=== PATIENT | male | born 1960 ===

== ENCOUNTER 2017-11-05 20:24 | Observation (INO) | payer BC ==
[2017-11-05 20:28] VITALS: BMI 31.0
--- NOTE | 2017-11-05 21:08 | ED PDOC ---
Arrival/HPI - General Chief Complaint: Chest Pain Time Seen by Provider: 11/05/17 20:27 Historian: Patient - History of Present Illness Narrative History of Present Illness (Text): 11/05/17 21:03 Erick Hackett is a 57 year old male , whose past medical history includes hypertension, who presents to the emergency department complaining of intermittent chest discomfort this evening while resting at home. Patient describes chest discomfort as tightness and non-radiating. Patient reports a history of past tobacco abuse and family history of CAD. Patient notes he is allergic to aspirin. Patient denies any shortness of breath, fever, chills, cough, leg pain, or any other complaints. Symptom Onset: Gradual Symptom Course: Unchanged Activities at Onset: Light Context: Home Past Medical History - Provider Review Nursing Documentation Reviewed: Yes - Infectious Disease Hx of Infectious Diseases: None - Tetanus Immunization Tetanus Immunization: Unknown - Cardiac Hx Hypertension: No (Pt states he does not have hx of HTN) - Pulmonary Hx Bronchitis: Yes - Neurological HX Cerebrovascular Accident: Yes Hx Transient Ischemic Attacks (TIA): Yes - HEENT Hx HEENT Disorder: No - Renal Hx Renal Disorder: No - Endocrine/Metabolic Hx Endocrine Disorders: No - Hematological/Oncological Hx Blood Disorders: No - Integumentary Hx Dermatological Disorder: No - Musculoskeletal/Rheumatological Hx Musculoskeletal Disorders: No Hx Falls: No - Gastrointestinal Hx Gastrointestinal Ulcer: Yes - Genitourinary/Gynecological Hx Genitourinary Disorders: No - Psychiatric Hx Depression: No Hx Emotional Abuse: No Hx Physical Abuse: No Hx Substance Use: No - Past Surgical History Past Surgical History: No Previous - Suicidal Assessment Feels Threatened In Home Enviroment: No Family/Social History - Physician Review Nursing Documentation Reviewed: Yes Family/Social History: Unknown Family HX Smoking Status: Former Smoker Hx Alcohol Use: No Hx Substance Use: No Hx Substance Use Treatment: No Allergies/Home Meds Allergies/Adverse Reactions: Allergies aspirin Allergy (Verified 11/05/17 20:29) VOMITING Home Medications: Home Meds Medication Instructions Recorded Confirmed Atorvastatin Calcium [Lipitor] 10 mg PO DAILY 11/04/14 11/06/17 Review of Systems - Physician Review All systems were reviewed & negative as marked: Yes - Review of Systems Constitutional: Normal. absent: Fevers Eyes: Normal ENT: Normal Respiratory: Normal. absent: SOB, Cough Cardiovascular: Chest Pain Gastrointestinal: Normal. absent: Abdominal Pain, Diarrhea, Nausea, Vomiting Genitourinary Male: Normal. absent: Dysuria, Frequency, Hematuria, Urinary Output Changes Musculoskeletal: Normal. absent: Back Pain, Neck Pain Skin: Normal. absent: Rash Neurological: Normal. absent: Headache, Dizziness Endocrine: Normal Hemo/Lymphatic: Normal Psychiatric: Normal Physical Exam Vital Signs Reviewed: Yes Vital Signs Temp Pulse Resp BP Pulse Ox 11/05/17 23:13 63 18 139/91 H 95 11/05/17 20:29 98.2 F 92 H 19 143/55 L 99 Temperature: Afebrile Blood Pressure: Normal Pulse: Regular Respiratory Rate: Normal Appearance: Positive for: Well-Appearing, Non-Toxic, Comfortable Pain Distress: None Mental Status: Positive for: Alert and Oriented X 3 - Systems Exam Head: Present: Atraumatic, Normocephalic Pupils: Present: PERRL Extroacular Muscles: Present: EOMI Conjunctiva: Present: Normal Mouth: Present: Moist Mucous Membranes Neck: Present: Normal Range of Motion. No: Meningeal Signs, MIDLINE TENDERNESS , Paraspinal Tenderness Respiratory/Chest: Present: Clear to Auscultation, Good Air Exchange. No: Respiratory Distress, Accessory Muscle Use Cardiovascular: Present: Regular Rate and Rhythm, Normal S1, S2. No: Murmurs Abdomen: Present: Normal Bowel Sounds. No: Tenderness, Distention, Peritoneal Signs Back: Present: Normal Inspection Upper Extremity: Present: Normal Inspection. No: Cyanosis, Edema Lower Extremity: Present: Normal Inspection. No: Edema Neurological: Present: GCS=15, CN II-XII Intact, Speech Normal Skin: Present: Warm, Dry, Normal Color. No: Rashes Psychiatric: Present: Alert, Oriented x 3, Normal Insight, Normal Concentration Medical Decision Making ED Course and Treatment: 11/05/17 21:03 Impression: 57 year old male complaining of intermittent chest tightness tonight. Plan: -- EKG -- CXR -- Labs, cardiac enzymes -- Reassess and disposition Progress Notes: Reviewed EKG, NSR at [address]-segment elevations or depressions, no T-wave inversions, normal intervals. 11/05/17 22:50 Chest X-ray reviewed, shows no acute processes. 11/06/17 00:[address] Tineo, requests pt go to hospitalist service. 11/06/17 00:05 Case discussed with chief medical technologist safety consultant, who is aware and agrees with plan. Case discussed with Dr. Bhandari, who is aware and agrees with plan. Accepts pt in to hospitalist service. Pt will go to Telemetry observation for chest pain. - Lab Interpretations Lab Results: 11/05/17 20:55 11/05/17 20:55 Lab Results 11/05/17 20:55: WBC 8.3, RBC 4.92, Hgb 14.5, Hct 42.5, MCV 86.4, MCH 29.5, MCHC 34.1, RDW 12.7, Plt Count 295, MPV 9.0 11/05/17 20:55: Sodium 142, Potassium 3.9, Chloride 105, Carbon Dioxide 27, Anion Gap 15, BUN 12, Creatinine 0.9, Est GFR ( Amer) > 60, Est GFR (Non- Af Amer) > 60, Random Glucose 157 H, Calcium 9.4, Total Bilirubin 0.3, AST 30, ALT 36, Alkaline Phosphatase 84, Lactate Dehydrogenase 409, Total Creatine Kinase 96, Troponin I < 0.01, Total Protein 7.4, Albumin 4.0, Globulin 3.4, Albumin/Globulin Ratio 1.2 11/05/17 20:55: PT 11.9, INR 1.04, APTT 31.6 I have reviewed the lab results: Yes - RAD Interpretation Radiology Orders: 11/05/17 20:46 CHEST PORTABLE [RAD] Stat Subsurface Augmentee Elint Operator: ED Physician - EKG Interpretation Interpreted by ED Physician: Yes Type: 12 lead EKG - Medication Orders Current Medication Orders: Discontinued Medications Acetaminophen (Tylenol 325mg Tab) 650 mg PO Q6H PRN PRN Reason: Pain, moderate (4-7) Atorvastatin Calcium (Lipitor) 10 mg PO DIN [facility] Last Admin: 11/06/17 17:15 Dose: 10 mg Enoxaparin Sodium (Lovenox) 40 mg SC DAILY [facility] PRN Reason: Protocol Last Admin: 11/06/17 14:15 Dose: 40 mg Subcutaneous Administrations Document 11/06/17 14:15 DALI (Rec: 11/06/17 14:15 KL [id number]) Injection Site MAR Injection Site Left Abdomen Charges for Administration # of Subcutaneous Administrations 1 Metoprolol Succinate (Toprol Xl) 12.5 mg PO BRK [facility] Last Admin: 11/06/17 08:36 Dose: Not Given Non-Admin Reason: Patient Refused Morphine Sulfate (Morphine) 2 mg IVP Q4H PRN PRN Reason: Pain, severe (8-10) - Scribe Statement The provider has reviewed the documentation as recorded by the Scribe Noreen Romero All medical record entries made by the Scribe were at my direction and personally dictated by me. I have reviewed the chart and agree that the record accurately reflects my personal performance of the history, physical exam, medical decision making, and the department course for this patient. I have also personally directed, reviewed, and agree with the discharge instructions and disposition. Disposition/Present on Arrival - Present on Arrival Any Indicators Present on Arrival: No History of DVT/PE: No History of Uncontrolled Diabetes: No Urinary Catheter: No History of Decub. Ulcer: No History Surgical Site Infection Following: None - Disposition Have Diagnosis and Disposition been Completed?: Yes Diagnosis: Chest pain Disposition: HOSPITALIZED Disposition Time: 23:00 Condition: GOOD
[2017-11-05 21:18] LABS: ALB/GLOB RATIO 1.2 (1.1-1.8); ALT/SGPT 36 U/L (7-56); AST/SGOT 30 U/L (17-59); BLOOD UREA NITROGEN 12 mg/dL (7-21); CALCIUM 9.4 mg/dL (8.4-10.5); GFR AFRICAN-AMERICAN > 60; GFR NON-AFRICAN AMERICAN > 60; HEMOGLOBIN 14.5 g/dL (14.0-18.0); MEAN CELL VOLUME 86.4 fl (80.0-105.0); MEAN CORPUSCULAR HEMOGLOBIN 29.5 pg (25.0-35.0); MEAN CORPUSCULAR HGB CONC 34.1 g/dl (31.0-37.0); RBC 4.92 10^6/uL (3.5-6.1); RED CELL DISTRIBUTION WIDTH 12.7 % (11.5-14.5); WHITE BLOOD COUNT 8.3 10^3/ul (4.5-11.0)
[2017-11-05 21:27] LABS: INR 1.04 (0.93-1.08); PARTIAL THROMBOPLASTIN TIME 31.6 Seconds (25.1-36.5); PROTHROMBIN TIME 11.9 SECONDS (9.4-12.5)
[2017-11-05 21:30] LABS: TROPONIN I < 0.01 ng/mL
[2017-11-06] MEDS ORDERED: Morphine 2 mg/ml ISec IVP PRN (01:17)
[2017-11-06 01:48] VITALS: RESP 20
--- NOTE | 2017-11-06 01:49 | CP.PCM.HP ---
<Markus Tenorio - Last Filed: 11/06/17 01:56> History of Present Illness - History of Present Illness History of Present Illness: CC: Chest Pain HPI: Patient is a 57 year old male with past medical history of HLD and history of TIA x3 without residual effects who presents to [facility] ED via private vehicle complaining of chest pain. Patient reports he began having chest discomfort 2 hours prior to arrival while sitting at home watching television. Patient describes the pain as muscle cramping at his left pectoral muscle that radiates to his left shoulder. Pain was initially reported a 8/10, lasting a few minutes , and is not reproducible. Patient reports associated shortness of breath with episode, denies nausea, vomiting, diaphoresis. Patient denies taking any medications or any alleviating factors to his pain. Reports prior episodes of chest discomfort similar to his presentation. Patient has been seen and evaluated by a coffee shop manager and reports having up to 3 stress tests in the past that were all negative. Patient denies headache, dizziness, change in vision, abdominal pain, diarrhea, nausea, vomiting, pleuritic pain, weakness. 12 point ROS otherwise mentioned in HPI is benign. 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 Nguyen Cardio: Last seen by Dr. Conroy/Dr. Rivera Present on Admission - Present on Admission Any Indicators Present on Admission: No Review of Systems - Review of Systems All systems: reviewed and no additional remarkable complaints except (otherwise mentioned in HPI) Past Patient History - Infectious Disease Hx of Infectious Diseases: None - Tetanus Immunizations Tetanus Immunization: Unknown - Past Social History Smoking Status: Former Smoker Alcohol: Social Drugs: Denies - CARDIAC Hx Cardiac Disorders: Yes Hx Angina: Yes Hx Hypercholesterolemia: Yes - PULMONARY Hx Respiratory Disorders: No - NEUROLOGICAL Hx Neurological Disorder: Yes Hx Transient Ischemic Attacks (TIA): Yes - HEENT Hx HEENT Problems: No - RENAL Hx Chronic Kidney Disease: No - ENDOCRINE/METABOLIC Hx Endocrine Disorders: No - HEMATOLOGICAL/ONCOLOGICAL Hx Blood Disorders: No - INTEGUMENTARY Hx Dermatological Problems: No - MUSCULOSKELETAL/RHEUMATOLOGICAL Hx Musculoskeletal Disorders: No - GASTROINTESTINAL Hx Gastrointestinal Disorders: No - GENITOURINARY/GYNECOLOGICAL Hx Genitourinary Disorders: No - PSYCHIATRIC Hx Psychophysiologic Disorder: No - SURGICAL HISTORY Hx Surgeries: No Meds Allergies/Adverse Reactions: Allergies Allergy/AdvReac Type Severity Reaction Status Date / Time aspirin Allergy VOMITING Verified 11/05/17 20:29 Physical Exam - Constitutional Appears: Well, Non-toxic, No Acute Distress - Head Exam Head Exam: ATRAUMATIC, NORMAL INSPECTION, NORMOCEPHALIC - Eye Exam Eye Exam: EOMI, PERRL - ENT Exam ENT Exam: Mucous Membranes Moist - Neck Exam Neck exam: Positive for: Full Rom. Negative for: Lymphadenopathy - Respiratory Exam Respiratory Exam: Clear to Auscultation Bilateral, NORMAL BREATHING PATTERN. absent: Rales, Rhonchi, Wheezes - Cardiovascular Exam Cardiovascular Exam: REGULAR RHYTHM, +S1, +S2 - GI/Abdominal Exam GI & Abdominal Exam: Normal Bowel Sounds, Soft. absent: Firm, Guarding, Tenderness - Back Exam Back exam: NORMAL INSPECTION. absent: paraspinal tenderness - Neurological Exam Neurological exam: Alert, Normal Gait, Oriented x3 - Psychiatric Exam Psychiatric exam: Normal Affect, Normal Mood - Skin Skin Exam: Dry, Intact Results - Vital Signs Recent Vital Signs: Last Vital Signs Temp 98.2 F 11/05/17 20:29 Pulse 61 11/06/17 00:13 Resp 18 11/06/17 00:13 BP 103/60 11/06/17 00:13 Pulse Ox 95 11/06/17 00:13 - Labs Result Diagrams: 11/05/17 20:55 11/05/17 20:55 Assessment & Plan - Assessment and Plan (Free Text) Assessment: Patient is a 57 year old male with past medical history of HLD and history of TIA x3 without residual effects who presents to [facility] ED via private vehicle complaining of chest pain. Patient evaluated in ED and found to have EKG with NSR, no ST segment elevations/depressions, initial troponin is negative. Patient admitted for observation. Plan: 1. Chest pain r/o ACS - EKG - NSR, No ST segment elevation/depression (interpreted by me) - Initial Troponin is negative, trend troponin x2 Q6H - Patient allergic to Aspirin, holding - Metoprolol 12.5mg - IV morphine 2mg Q4H prn pain - O2 NC prn - Cardiology consult, appreciate recs 2. HLD hx - Continue home meds DVT/GI ppx - SCD - Pepcid Case and Plan discussed with attending - Date & Time Date: 11/06/17 Time: 01:51 <Paula Bhandari - Last Filed: 11/06/17 07:48> Results - Vital Signs Recent Vital Signs: Last Vital Signs Temp 97.8 F 11/06/17 06:00 Pulse 84 11/06/17 06:00 Resp 20 11/06/17 06:00 BP 121/77 11/06/17 06:00 Pulse Ox 100 11/06/17 06:00 - Labs Result Diagrams: 11/05/17 20:55 11/05/17 20:55 Labs: Laboratory Results - last 24 hr 11/06/17 02:25 Troponin I < 0.01 Attending/Attestation - Attestation I have personally seen and examined this patient.: Yes I have fully participated in the care of the patient.: Yes I have reviewed all pertinent clinical information: Yes Notes (Text): 11/06/17 07:48 agree with documentation and orders placed.
[2017-11-06] MEDS ORDERED: Metoprolol Succinate 25 mg XL Tab PO SCH (08:00)
--- NOTE | 2017-11-06 08:48 | RAD ---
HISTORY: Chest pain COMPARISON: 11/03/2014 FINDINGS: LUNGS: No active pulmonary disease. PLEURA: No significant pleural effusion identified, no pneumothorax apparent. CARDIOVASCULAR: No radiographic findings to suggest acute or significant cardiovascular disease. OSSEOUS STRUCTURES: No significant abnormalities. VISUALIZED UPPER ABDOMEN: Normal. OTHER FINDINGS: None. IMPRESSION: No active disease. No significant interval change compared to the prior examination(s).
[2017-11-06 09:17] LABS: BASO # 0.03 K/mm3 (0.0-2.0); BASO % 0.4 % (0.0-3.0); EOS # 0.2 (0.0-0.7); EOS % 2.7 % (1.5-5.0); GRAN # 4.53 (1.4-6.5); GRAN % 57.6 % (50.0-68.0); HEMOGLOBIN 15.6 g/dL (14.0-18.0); LYMPH # 2.5 (1.2-3.4); LYMPH % 31.2 % (22.0-35.0); MEAN CELL VOLUME 86.1 fl (80.0-105.0); MEAN CORPUSCULAR HEMOGLOBIN 29.7 pg (25.0-35.0); MEAN CORPUSCULAR HGB CONC 34.5 g/dl (31.0-37.0); MEAN PLATELET VOLUME 9.3 fl (7.0-11.0); MONO # 0.6 (0.1-0.6); MONO % 8.1 % (1.0-6.0); RBC 5.25 10^6/uL (3.5-6.1); RED CELL DISTRIBUTION WIDTH 12.8 % (11.5-14.5); WHITE BLOOD COUNT 7.9 10^3/ul (4.5-11.0)
[2017-11-06 09:27] LABS: ALB/GLOB RATIO 1.1 (1.1-1.8); ALBUMIN 3.9 g/dL (3.0-4.8); ALT/SGPT 35 U/L (7-56); AST/SGOT 24 U/L (17-59); BLOOD UREA NITROGEN 14 mg/dL (7-21); CALCIUM 9.4 mg/dL (8.4-10.5); GFR AFRICAN-AMERICAN > 60; GFR NON-AFRICAN AMERICAN > 60
[2017-11-06 09:52] LABS: HDL CHOLESTEROL 29 mg/dL (29-60)
[2017-11-06] MEDS ORDERED: Enoxaparin 40 mg Syringe SC SCH (10:00)
[2017-11-06 10:03] LABS: LDL CHOLESTEROL 169 mg/dL (0-129)
--- NOTE | 2017-11-06 13:05 | CP.PCM.DIS ---
<Luz Abdi - Last Filed: 11/06/17 16:16> Provider - Provider Date of Admission: 11/05/17 23:02 Attending physician: Parminder Wetzel MD Primary care physician: Federico Nguyen APN Consults: Dr Rivera Time Spent in preparation of Discharge (in minutes): 35 Hospital Course - Lab Results Lab Results: Most Recent Lab Values WBC 7.9 10^3/ul (4.5-11.0) 11/06/17 09:00 RBC 5.25 10^6/uL (3.5-6.1) 11/06/17 09:00 Hgb 15.6 g/dL (14.0-18.0) 11/06/17 09:00 Hct 45.2 % (42.0-52.0) 11/06/17 09:00 MCV 86.1 fl (80.0-105.0) 11/06/17 09:00 MCH 29.7 pg (25.0-35.0) 11/06/17 09:00 MCHC 34.5 g/dl (31.0-37.0) 11/06/17 09:00 RDW 12.8 % (11.5-14.5) 11/06/17 09:00 Plt Count 305 10^3/uL (120.0-450.0) 11/06/17 09:00 MPV 9.3 fl (7.0-11.0) 11/06/17 09:00 Gran % 57.6 % (50.0-68.0) 11/06/17 09:00 Lymph % (Auto) 31.2 % (22.0-35.0) 11/06/17 09:00 Bledsoe % (Auto) 8.1 % (1.0-6.0) H 11/06/17 09:00 Eos % (Auto) 2.7 % (1.5-5.0) 11/06/17 09:00 Baso % (Auto) 0.4 % (0.0-3.0) 11/06/17 09:00 Gran # 4.53 (1.4-6.5) 11/06/17 09:00 Lymph # (Auto) 2.5 (1.2-3.4) 11/06/17 09:00 Bledsoe # (Auto) 0.6 (0.1-0.6) 11/06/17 09:00 Eos # (Auto) 0.2 (0.0-0.7) 11/06/17 09:00 Baso # (Auto) 0.03 K/mm3 (0.0-2.0) 11/06/17 09:00 PT 11.9 SECONDS (9.4-12.5) 11/05/17 20:55 INR 1.04 (0.93-1.08) 11/05/17 20:55 APTT 31.6 Seconds (25.1-36.5) 11/05/17 20:55 Sodium 141 mmol/L (132-148) 11/06/17 09:00 Potassium 4.3 mmol/L (3.6-5.0) 11/06/17 09:00 Chloride 106 mmol/L (98-107) 11/06/17 09:00 Carbon Dioxide 26 mmol/L (21-33) 11/06/17 09:00 Anion Gap 14 (10-20) 11/06/17 09:00 BUN 14 mg/dL (7-21) 11/06/17 09:00 Creatinine 0.9 mg/dl (0.8-1.5) 11/06/17 09:00 Est GFR ( Amer) > 60 11/06/17 09:00 Est GFR (Non-Af Amer) > 60 11/06/17 09:00 Random Glucose 149 mg/dL (70-110) H 11/06/17 09:00 Hemoglobin A1c 7.3 % (4.2-6.5) H 11/06/17 09:00 Calcium 9.4 mg/dL (8.4-10.5) 11/06/17 09:00 Phosphorus 4.0 mg/dL (2.5-4.5) 11/06/17 09:00 Magnesium 2.3 mg/dL (1.7-2.2) H 11/06/17 09:00 Total Bilirubin 0.3 mg/dL (0.2-1.3) 11/06/17 09:00 AST 24 U/L (17-59) 11/06/17 09:00 ALT 35 U/L (7-56) 11/06/17 09:00 Alkaline Phosphatase 93 U/L (38-126) 11/06/17 09:00 Lactate Dehydrogenase 409 U/L (333-699) 11/05/17 20:55 Total Creatine Kinase 96 U/L (35-230) 11/05/17 20:55 Troponin I < 0.01 ng/mL 11/06/17 08:20 Total Protein 7.5 g/dL (5.8-8.3) 11/06/17 09:00 Albumin 3.9 g/dL (3.0-4.8) 11/06/17 09:00 Globulin 3.6 gm/dL 11/06/17 09:00 Albumin/Globulin Ratio 1.1 (1.1-1.8) 11/06/17 09:00 Triglycerides 172 mg/dL (35-160) H 11/06/17 09:00 Cholesterol 219 mg/dL (130-200) H 11/06/17 09:00 LDL Cholesterol Direct 169 mg/dL (0-129) H 11/06/17 09:00 HDL Cholesterol 29 mg/dL (29-60) 11/06/17 09:00 TSH 3rd Generation 2.98 mIU/mL (0.46-4.68) 11/06/17 09:00 - Hospital Course Hospital Course: HPI: Patient is a 57 year old male with past medical history of HLD and history of TIA x3 without residual effects who presents to [facility] via private vehicle complaining of chest pain. Patient reports he began having chest discomfort 2 hours prior to arrival while sitting at home watching television. Patient describes the pain as muscle cramping at his left pectoral muscle that radiates to his left shoulder. Pain was initially reported a 8/10, lasting a few minutes , and is not reproducible. Patient reports associated shortness of breath with episode, denies nausea, vomiting, diaphoresis. Patient denies taking any medications or any alleviating factors to his pain. Reports prior episodes of chest discomfort similar to his presentation. Patient has been seen and evaluated by a college archivist and reports having up to 3 stress tests in the past that were all negative. Patient denies headache, dizziness, change in vision, abdominal pain, diarrhea, nausea, vomiting, pleuritic pain, weakness. 12 point ROS otherwise mentioned in HPI is benign. Patient was given Lipitor 10mg PO DIN, Lovenox 40mg SC Daily. EKG showed no ST elevations. troponins negative x 3. Myocardial stress test normal and echo showed normal EF. Patient is to follow up with Cardiology in 1 week. and to take ASA 81mg (enteric coated) due to patient complaining of nausea and vomiting from previous intake of ASA. - Date & Time of H&P Date of H&P: 11/06/17 Time of H&P: 12:59 Discharge Exam - Head Exam Head Exam: ATRAUMATIC, NORMAL INSPECTION, NORMOCEPHALIC - Eye Exam Eye Exam: EOMI, Normal appearance Pupil Exam: NORMAL ACCOMODATION, PERRL - ENT Exam ENT Exam: Mucous Membranes Moist - Neck Exam Neck exam: Full Rom - Respiratory Exam Respiratory Exam: Clear to PA & Lateral, NORMAL BREATHING PATTERN. absent: Accessory Muscle Use - Cardiovascular Exam Cardiovascular Exam: REGULAR RHYTHM, +S1, +S2. absent: Bradycardia, Tachycardia - GI/Abdominal Exam GI & Abdominal Exam: Normal Bowel Sounds, Soft. absent: Diminished Bowel Sounds , Tenderness, Unremarkable - Extremities Exam Extremities exam: full ROM - Back Exam Back exam: FULL ROM - Neurological Exam Neurological exam: Alert, CN II-XII Intact, Oriented x3 - Psychiatric Exam Psychiatric exam: Normal Affect, Normal Mood - Skin Skin Exam: Dry, Intact, Normal Color, Warm Discharge Plan - Discharge Medications Prescriptions: Aspirin [Low Dose Aspirin EC] 81 mg PO DAILY #30 tablet.dr - Follow Up Plan Condition: GOOD Disposition: HOME/ ROUTINE Instructions: Cardiac Stress Test, Heart Healthy Diet, Chest Pain (DC) Additional Instructions: follow up with dr. Nguyen in one week and Plastic Mixer in One week for further management take ASA 81mg (enteric coated) daily Referrals: Federico Nguyen APN [Primary Care Provider] - <Parminder Wetzel - Last Filed: 11/08/17 12:07> Provider - Provider Date of Admission: 11/05/17 23:02 Attending physician: Parminder Wetzel MD Primary care physician: Federico Nguyen APN Hospital Course - Lab Results Lab Results: Most Recent Lab Values WBC 7.9 10^3/ul (4.5-11.0) 11/06/17 09:00 RBC 5.25 10^6/uL (3.5-6.1) 11/06/17 09:00 Hgb 15.6 g/dL (14.0-18.0) 11/06/17 09:00 Hct 45.2 % (42.0-52.0) 11/06/17 09:00 MCV 86.1 fl (80.0-105.0) 11/06/17 09:00 MCH 29.7 pg (25.0-35.0) 11/06/17 09:00 MCHC 34.5 g/dl (31.0-37.0) 11/06/17 09:00 RDW 12.8 % (11.5-14.5) 11/06/17 09:00 Plt Count 305 10^3/uL (120.0-450.0) 11/06/17 09:00 MPV 9.3 fl (7.0-11.0) 11/06/17 09:00 Gran % 57.6 % (50.0-68.0) 11/06/17 09:00 Lymph % (Auto) 31.2 % (22.0-35.0) 11/06/17 09:00 Bledsoe % (Auto) 8.1 % (1.0-6.0) H 11/06/17 09:00 Eos % (Auto) 2.7 % (1.5-5.0) 11/06/17 09:00 Baso % (Auto) 0.4 % (0.0-3.0) 11/06/17 09:00 Gran # 4.53 (1.4-6.5) 11/06/17 09:00 Lymph # (Auto) 2.5 (1.2-3.4) 11/06/17 09:00 Bledsoe # (Auto) 0.6 (0.1-0.6) 11/06/17 09:00 Eos # (Auto) 0.2 (0.0-0.7) 11/06/17 09:00 Baso # (Auto) 0.03 K/mm3 (0.0-2.0) 11/06/17 09:00 PT 11.9 SECONDS (9.4-12.5) 11/05/17 20:55 INR 1.04 (0.93-1.08) 11/05/17 20:55 APTT 31.6 Seconds (25.1-36.5) 11/05/17 20:55 Sodium 141 mmol/L (132-148) 11/06/17 09:00 Potassium 4.3 mmol/L (3.6-5.0) 11/06/17 09:00 Chloride 106 mmol/L (98-107) 11/06/17 09:00 Carbon Dioxide 26 mmol/L (21-33) 11/06/17 09:00 Anion Gap 14 (10-20) 11/06/17 09:00 BUN 14 mg/dL (7-21) 11/06/17 09:00 Creatinine 0.9 mg/dl (0.8-1.5) 11/06/17 09:00 Est GFR ( Amer) > 60 11/06/17 09:00 Est GFR (Non-Af Amer) > 60 11/06/17 09:00 Random Glucose 149 mg/dL (70-110) H 11/06/17 09:00 Hemoglobin A1c 7.3 % (4.2-6.5) H 11/06/17 09:00 Calcium 9.4 mg/dL (8.4-10.5) 11/06/17 09:00 Phosphorus 4.0 mg/dL (2.5-4.5) 11/06/17 09:00 Magnesium 2.3 mg/dL (1.7-2.2) H 11/06/17 09:00 Total Bilirubin 0.3 mg/dL (0.2-1.3) 11/06/17 09:00 AST 24 U/L (17-59) 11/06/17 09:00 ALT 35 U/L (7-56) 11/06/17 09:00 Alkaline Phosphatase 93 U/L (38-126) 11/06/17 09:00 Lactate Dehydrogenase 409 U/L (333-699) 11/05/17 20:55 Total Creatine Kinase 96 U/L (35-230) 11/05/17 20:55 Troponin I < 0.01 ng/mL 11/06/17 08:20 Total Protein 7.5 g/dL (5.8-8.3) 11/06/17 09:00 Albumin 3.9 g/dL (3.0-4.8) 11/06/17 09:00 Globulin 3.6 gm/dL 11/06/17 09:00 Albumin/Globulin Ratio 1.1 (1.1-1.8) 11/06/17 09:00 Triglycerides 172 mg/dL (35-160) H 11/06/17 09:00 Cholesterol 219 mg/dL (130-200) H 11/06/17 09:00 LDL Cholesterol Direct 169 mg/dL (0-129) H 11/06/17 09:00 HDL Cholesterol 29 mg/dL (29-60) 11/06/17 09:00 TSH 3rd Generation 2.98 mIU/mL (0.46-4.68) 11/06/17 09:00 Attending/Attestation - Attestation I have personally seen and examined this patient.: Yes I have fully participated in the care of the patient.: Yes I have reviewed all pertinent clinical information, including history, physical exam and plan: Yes Notes (Text): 11/08/17 12:07 Medical record note made by the resident after discussion with my direction and input after the patient was personally seen and examined by me. I have reviewed the chart and agree that the record accurately reflects by personal performance of the history, physical exam, data review, and medical decision-making, in the course for the patient. I have also personally directed the plan of care.
--- NOTE | 2017-11-06 17:02 | CARD ---
APPROVED REPORT EXAM: Two-dimensional and M-mode echocardiogram with Doppler and color Doppler. INDICATION LV Function:SystolicDiastolic Chest Pain 2D DIMENSIONS IVSd0.8 (0.7-1.1cm)LVDd4.2 (3.9-5.9cm) PWd0.9 (0.7-1.1cm)LVDs2.9 (2.5-4.0cm) FS (%) 31.0 %LVEF (%)59.0 (>50%) M-Mode DIMENSIONS Aortic Root3.10 (2.2-3.7cm)Aortic Cusp Exc.1.80 (1.5-2.0cm) Aortic Valve AoV Peak Qvmjfvup592.0cm/Marizol Peak GR.4mmHg Mitral Valve MV E Luyehwgd65.8cm/sMV A Rujbtsjq74.5cm/sE/A ratio0.9 TDI Lateral E' Peak V8.48cm/sMedial E' Peak V5.46cm/sE/Lateral E'6.5 E/Medial E'10.0 Pulmonary Valve PV Peak Qwhxbcid80.4cm/sPV Peak Grad.2mmHg Tricuspid Valve TR Peak Wwkxkcsx312ey/sRAP VAJEZUGC52phQjTZ Peak Gr.18mmHg [id number] LEFT VENTRICLE The left ventricle is normal size. There is normal left ventricular wall thickness. The left ventricular function is normal.EF-55-60% There is normal LV segmental wall motion. Transmitral Doppler flow pattern is Grade III-reversible restrictive diastolic dysfunction. No left ventricle thrombus noted on this study. There is no ventricular septal defect visualized. There is no left ventricular aneurysm. There is no mass noted in the left ventricle. RIGHT VENTRICLE The right ventricle is normal size. There is normal right ventricular wall thickness. The right ventricular systolic function is normal. ATRIA The left atrium size is normal. The right atrium size is normal. The interatrial septum is intact with no evidence for an atrial septal defect. AORTIC VALVE The aortic valve is thickened but opens well. The aortic valve is mildly to moderately sclerotic. No aortic regurgitation is present. There is no aortic valvular stenosis. There is no aortic valvular vegetation. MITRAL VALVE The mitral valve is thickened but opens well. Mitral regurgitation is trace. There is no mitral valve stenosis. There is no evidence of mitral valve prolapse. TRICUSPID VALVE The tricuspid valve leaflets are thickened , but open well. There is trace tricuspid regurgitation.RVSP-28 mmof Hg There is no tricuspid valve stenosis. There is no tricuspid valve prolapse or vegetation. PULMONIC VALVE The pulmonary valve is normal in structure. GREAT VESSELS The aortic root is normal in size. The ascending aorta is normal in size. The pulmonary artery is normal. The IVC is normal in size and collapses >50% with inspiration. PERICARDIAL EFFUSION There is no pleural effusion. There is no pericardial effusion. <Conclusion> Normal ChamberSize. EF-55-60% Trace MR/TR RVSP-28 mmof Hg.
--- NOTE | 2017-11-06 17:19 | CON ---
DATE: REASON FOR CONSULTATION: Chest pain, rule out underlying coronary artery disease. BRIEF CLINICAL HISTORY: This is a 57-year-old male with past medical history significant for CVA, TIA times 3 without any residual deformity or weakness, hyperlipidemia, hypertension who said he was sitting yesterday watching TV, suddenly he felt sharp chest pain associated with shortness of breath. He denies any diaphoresis, denies any palpitation. Later on, he felt palpitation and the pain completely went away, then he felt sharp pain in the epigastric area, so he decided to come to the emergency room. No further episode of chest pain happened. Denies any episode of chest pain or dyspnea on exertion or chest pain on exertion. History of stress test 2 to 3 years ago. PAST MEDICAL HISTORY: Significant for hypertension, hyperlipidemia, CVA, TIA without any residual deformity. SOCIAL HISTORY: He denies any smoking, denies any history of alcohol abuse, used to smoke, quit 15 years ago, used for 30 pack year. History of social drink, sometimes he drinks 2 to 3 cans of beer on the weekend and sometimes does not drink. FAMILY HISTORY: Significant for cancer of the lung. PREVIOUS CARDIAC WORKUP: As follows: The patient had a stress test on 11/04/2014 that shows essentially normal myocardial perfusion study, ejection fraction 55%. The patient walked on the treadmill for 7 minutes 14 seconds, no ischemic changes noted. The patient had an echocardiography done way back on 11/04/2014 that showed normal chamber size, ejection fraction 65%, trace MR, trace TR, trace AR, trace PI, RV systolic pressure 24 dated 11/04/2014. CURRENT MEDICATIONS: The patient at home was taking only atorvastatin 10 mg daily. REVIEW OF SYSTEMS: As per HPI. PHYSICAL EXAMINATION: VITAL SIGNS: Temperature afebrile, heart rate 64, blood pressure 121/77. HEENT: PERRLA. Extraocular muscles intact. NECK: Supple. No carotid bruit. No thyromegaly. HEART: S1 and S2 regular. CHEST: Clear to auscultation. ABDOMEN: Soft. EXTREMITIES: Clubbing and cyanosis negative. LABORATORY DATA AND IMAGING: EKG shows normal sinus, no acute ST-T changes noted. Blood workup as follows: WBC 8.3, hemoglobin 14.5, hematocrit 42.5, platelet count 295. Chemistry shows sodium 142, potassium 3.9, chloride 105, carbon dioxide 27, anion gap of 12, BUN 15, creatinine 0.9, troponin 0.01 x3, negative. IMPRESSION: Admitted with chest pain, rule out unstable angina, diabetes, hypertension, hyperlipidemia, history of cerebrovascular accident, history of transient ischemic attack without any residual deformity. . RECOMMENDATIONS: Start aspirin, Plavix, DVT prophylaxis, lipid profile, TSH, hemoglobin A1c, we will get echo and a stress test. Further recommendation after the stress test. We will follow with you. We will keep n.p.o. for a stress test now. Thank you, Dr. Almonte, for providing us the opportunity in taking care of the patientErick. Parminder Rivera MD
--- NOTE | 2017-11-06 17:19 | CARD ---
APPROVED REPORT EKG Measurement Heart [id number] <Conclusion> Normal sinus rhythm Normal ECG
[2017-11-06 18:22] VITALS: BP 130/86; PULSE 71; TEMP 98.2; O2SAT 94
--- NOTE | 2017-11-07 22:47 | CARD ---
APPROVED REPORT Protocol: JASNO Test Type: Sestamibi Stress Test Attending Physician: Dr. Parminder Conroy Referring Physician: Dr. PARMINDER MARTIN Test Indications: Chest Pain Height:5 ft 4 in Weight:181lbs Medications: LIPITOR, TOPROL, MORPHINE Medical History: 55 YEAR OLD MALE WITH A H/O HIGH CHOLESTEROL AND TIA Target HR: 164 bpm Resting ECG: RSR. Resting Heart Rate: 69 bpm Resting Blood Pressure: 118/76mmHg Submaximum (85%): 139 bpm POST EXERCISE Reason for Termination: Fatigue Target HR: No Max HR: 155 bpm 95% of Maximum Predicted HR: 164 bpm Exercise duration: 08:15 min:sec, 3 Stage Exercise capacity: 10.1METs Max Blood Pressure: 150/72mmHg Blood Pressure response to exercise: normal resting BP - appropriate response Heart Rate response to exercise: appropriate Chest Pain: No, none Angina index: 0 Arrhythmia: No, none ST Change: No, none Deviation: 0 mm TEST SUMMARY [id number]/.0. [id number]/76.0. EXERCISESTAGE 103:[id number]/68.0. EXERCISESTAGE 203:[id number]/64.0. EXERCISESTAGE 302:[id number]/82.0. [id number]/72.0. INTERPRETATION Stress EKG Conclusion: MYOVIEW NUCLEAR STRESS TEST STOPPED AFTER 8 MINUTES AND 15 SECONDS OF JASON PROTOCOL DUE TO FATIGUE. PATIENT ACHIEVED 95% OF PREDICTED HEART RATE. NO CHEST PAIN. NO ST-T CHANGES. NUCLEAR SCAN REPORT PENDING. Signed by Parminder Conroy Electronically Approved: 11/06/2017 13:00:45 EXAM: Myocardial Perfusion REST/STRESS Stress Test Type: Exercise Treadmill Imaging Protocol Rest Spect myocardial perfusion imaging was performed in supine position 45 minutes following the injection of 10.3 mCi of Tc-99 Myoview. At peak stress, the patient was injected intravenously with 30.9mCi of Tc-99 tetrofosmin after an exercise time of 8 minutes and 15 seconds. Gated Stress Spect was performed 65 minutes after intravenous Tc-99 Myoview injection. The images were gated to evaluate regional wall motion and calculate ventricular ejection fraction.Images were reconstructed using backfilter projection method in short horizontal and verticle long axis. Spect slices were generated. LV Perfusion The quality of the study is good. The left ventricle is normal in size. The right ventricle is unremarkable. The lung uptake is normal. The distribution of tracer reveals mildly and diffusely decreased perfusion in the inferior wall on the stress study. The remainder of the LV myocardium is unremarkable. The rest myocardial perfusion study shows no significant change. Wall Motion Wall motion study shows good contractility of the left ventricle. LVEF = 69%. Conclusion 1. Essentially normal SPECT myocardial perfusion study. 2. Fixed, inferior defect is most likely due to diaphrgmatic attenuation. 3. Normal gated wall motion and thicknening of the left ventricle. 4. In comparison with the last study of 11/04/2014, there is no significant change.
== END 2017-11-06 19:01 | disposition home or self-care (01) ==
LOC: ED 20:24 → ERH 23:02 → 3RSO 11-06 00:47
PROVIDERS: ADMIT Internal Medicine; ATTEND Internal Medicine
DX: R07.89 Other chest pain (principal); I10 Essential (primary) hypertension; E78.00 Pure hypercholesterolemia, unspecified; Z86.73 Personal history of transient ischemic attack (TIA), and cerebral infarction without residual deficits; Z88.6 Allergy status to analgesic agent; Z87.891 Personal history of nicotine dependence; Z80.1 Family history of malignant neoplasm of trachea, bronchus and lung; Z82.49 Family history of ischemic heart disease and other diseases of the circulatory system; Z87.11 Personal history of peptic ulcer disease
CPT/HCPCS: 36415; 71045; 78452; 80053; 80061; 82550; 83036; 83615; 83735; 84100; 84443; 84484; 85025; 85027; 85610; 85730; 93005; 93017; 93306; 99285; A9502; G0378; J1650